=== PATIENT | female | born 1960 | race Hispanic/Latino ===

== ENCOUNTER 2018-09-17 06:46 | Observation (INO) | payer MEDICARE ==
[2018-09-14 13:27] LABS: BLOOD UREA NITROGEN 9 mg/dL (7-26); BUN/CREATININE RATIO 13 (6-25); CALCIUM 9.1 mg/dL (8.4-10.2); CARBON DIOXIDE 26 mmol/L (22-29); CHLORIDE 106 mmol/L (98-107); EST GLOMERULAR FILTRATION RATE > 60 ML/MIN (60-); GLUCOSE 166 mg/dL (74-118); SODIUM 139 mmol/L (136-145)
[~2018-09-17] VITALS: Ht 162.6 cm; Wt 82.8 kg
[~2018-09-17 06:46] MED LIST: ATORVASTATIN CA20 MG PO; GABAPENTIN300 MG PO; METFORMIN HCL500 MG PO; OMEPRAZOLE40 MG PO; ROPIVACAINE 246.25 MG, EPINEPHRINE HCL 1:1000 1ML 0.5 MG, CLONIDINE HCL 0.08 MG, KETORO... INJ ONE
--- OUTSIDE RECORDS SUMMARY | 2018-09-17 07:05 | XMS REPORT | Clinical Summary ---
Author Author [facility] Address Unknown Phone Unavailable Care Team Providers Care State Patrol Officer Name Role Phone Jef Martínez MD PCP Allergies Not on File Medications Not on file Active Problems Not on file Social History Date Tobacco Use Types Packs/Day Years Used Never Assessed Sex Assigned at Date Recorded Not on file Industry Job Start Date Occupation Not on file Not on file Not on file Travel End Travel History Travel Start No recent travel history available. Last Filed Vital Signs Not on file Plan of Treatment Not on file Results Not on fileafter 09/16/2017 Insurance Type Payer Benefit Subscriber ID Effective Phone Address Plan / Dates Group HMO CIGNA HEALTHSPRING CIGNA xxxxxxxxx 2016-P [facility]I [facility] Advance Directives Patient has advance care planning documents on file. For more information, ana lilia membreno contact: Rafael Waggoner [address] [place] [address]
--- OUTSIDE RECORDS SUMMARY | 2018-09-17 07:05 | XMS REPORT ---
Author Author [facility] Address Unknown Phone Unavailable Care Team Providers Care Package Reinspector Name Role Phone Unavailable Unavailable Payers Payer Name Policy Type Policy Number Effective Date Expiration Date Problems This patient has no known problems. Allergies, Adverse Reactions, Alerts This patient has no known allergies or adverse reactions. Medications This patient has no known medications. Results Test Description Test Time Test Comments Text Results Atomic Results Result Comments - XR CHEST 2 V 2018-07-24 11:27:00 FAX: Jef Landis MD [phone] [place]: O St: REG Name: RADHADERECKDAMASO CAMPBELL [facility] : 1960 Age/S: 58/F [address] [facility] Unit #: [id number] Loc: [place] [address] Phys: Jef Martínez MD Acct: [id number] Dis Date: Status: REG CLI PHONE #: [phone] Exam Date: 07/24/2018 1100 FAX #: [phone] Reason: COUGH EXAMS: CPT CODE: [id number] XR CHEST 2 V 14484 HISTORY: Cough. COMPARISON: None available. AP and lateral view of the chest: No acute infiltrates, effusion or congestion. Cardiac and the mediastinal silhouette are normal. IMPRESSION: No acute infiltrates, effusion or congestion. at 1127 Reported and signed by: Hua Urbano M.D. CC: Jef Martínez MD Technologist: RT Jaclyn(Shahriar) Trnscrd Date/Time/By: 07/24/2018 (1124) : By: [email or web address] Orig Print D/T: S: 07/24/2018 (5731) PAGE 1 Signed Report
[2018-09-17] MEDS ORDERED: DEXAMETHASONE SOD PHOS 10 MG/1 ML VIAL ONE (07:17)
[2018-09-17] MEDS ORDERED: CELECOXIB 200 MG CAP ONE (07:17)
[2018-09-17] MEDS ORDERED: GABAPENTIN 300 MG CAP ONE (07:17)
[2018-09-17] MEDS ORDERED: CEFAZOLIN SOD 2 GM/D5W 50ML 50 ML IV ONE (07:18)
[2018-09-17] MEDS ORDERED: TRANEXAMIC ACID 1,000 MG/10 ML ML ONE (07:26)
[2018-09-17] MEDS ORDERED: BACITRACIN 50,000 UNIT VIAL ONE (07:26)
[2018-09-17] MEDS ORDERED: VANCOMYCIN HCL 1,000 MG ONE (07:26)
[2018-09-17] MEDS ORDERED: SODIUM CHLORIDE 0.9% 500ML 500 ML ONE (07:27)
[2018-09-17] MEDS ORDERED: KETOROLAC TROMETHAMINE 30 MG/ML VIAL IV PRN ×2 (09:45→11:00)
[2018-09-17] MEDS ORDERED: DIPHENHYDRAMINE HCL INJ 50 MG/ML VIAL IM/IV PRN (09:45)
[2018-09-17] MEDS ORDERED: PROMETHAZINE HCL (IM) 25 MG/ML VIAL INJ PRN (09:45)
[2018-09-17] MEDS ORDERED: ZOLPIDEM TARTRATE 5 MG TAB PO PRN (09:45)
[2018-09-17] MEDS ORDERED: ONDANSETRON HCL INJ 2MG/ML 2ML 2 MG/ML VIAL IV PRN (09:45)
[2018-09-17] MEDS ORDERED: HYDROCODONE/APAP 5MG-325MG TAB PO PRN (09:45)
[2018-09-17] MEDS ORDERED: ACETAMINOPHEN 650 MG SUPP PR PRN (09:45)
[2018-09-17] MEDS ORDERED: DOCUSATE SODIUM 100 MG CAP PO PRN (09:45)
--- OUTSIDE RECORDS SUMMARY | 2018-09-17 10:06 | XMS REPORT | Clinical Summary ---
Author Author [facility] Address Unknown Phone Unavailable Care Team Providers Care Stitch Rubber Name Role Phone Jef Martínez MD PCP [...] CIGNA HEALTHSPRING CIGNA xxxxxxxxx 2016-P [facility]I resent [facility] AD[facility] Advance Directives Patient has advance care planning documents on file. For more information, ana lilia membreno contact: Rafael Waggoner [address] [place] [address]
[2018-09-17] MEDS ORDERED: HYDROMORPHONE 2MG/ML 2 MG/ML ML ONE (10:21)
--- NOTE | 2018-09-17 10:27 | Diagnostic Imaging Report ---
Left knee radiographs-2 views History: Postoperative. Findings: Status post left total total knee arthroplasty and patellar resurfacing with prosthetic components in anatomic alignment. Overlying subcutaneous emphysema and surgical skin lola are present. No evidence of acute fracture. IMPRESSION: Status post left total knee arthroplasty in anatomic position. Signed by: Dr. Daxa Manning MD on 09/17/2018 10:23 AM
--- NOTE | 2018-09-17 11:00 | NUR ---
RECEIVED PATIENT FROM RECOVERY. PATIENT A/O X3, EVEN RESPIRATIONS ON RA. BOWEL SOUNDS ACTIVE. LEFT KNEE DRESSING CLEAN, DRY, AND INTACT. RIGHT FA IV WITH IVF @ 100 CC/HR. FOOT PUMPS IN PLACE BILATERALLY. VITAL SIGNS STABLE. ORIENTED PATIENT TO CALL LIGHT. BED LOW, WHEELS LOCKED, SIDE RAILS X2. WILL CONTINUE TO MONITOR PATIENT.
[2018-09-17 11:13] VITALS: BP 125/75
[2018-09-17 11:15] VITALS: BP 125/75
[2018-09-17] MEDS: ACETAMINOPHEN 1000 MG/100 ML IV SCH ×2 (11:47→17:18)
[2018-09-17 12:20] VITALS: BP 125/75
[2018-09-17] MEDS: CEFAZOLIN SOD 1 GM/NS 50ML 50 ML IV SCH ×2 (14:15→22:25)
--- NOTE | 2018-09-17 15:37 | NUR ---
PATIENT HOPPED 15 FT WITH PT. PATIENT BACK IN BED, CALL LIGHT IN REACH, WILL CONTINUE TO MONITOR.
[2018-09-17] MEDS ORDERED: DEXTROSE 50% SYRINGE 50 ML IV PRN (16:15)
--- NOTE | 2018-09-17 16:15 | NUR ---
NOTIFIED DR. SPAULDING OF 249 BLOOD SUGAR. NEW ORDER FOR LOW DOSE SS HUMALOG. ORDERS IMPLEMENTED.
[2018-09-17 16:34] VITALS: BP 97/69
[2018-09-17] MEDS: CELECOXIB 200 MG CAP PO SCH (16:34)
[2018-09-17] MEDS: ASPIRIN 325 MG TAB PO SCH (16:34)
[2018-09-17] MEDS: INSULIN LISPRO 100 UNIT/1 ML 3ML VIAL SQ SCH ×2 (16:44→21:00)
--- NOTE | 2018-09-17 17:36 | Operative Report ---
DATE OF PROCEDURE: 09/17/2018 SURGEON: Aguilar Aragon MD PROTOTYPE CARPENTER: Blaine Mustafa PA-C. PREOPERATIVE DIAGNOSIS: Osteoarthritis, left knee. POSTOPERATIVE DIAGNOSIS: Osteoarthritis, left knee. PROCEDURE: Left total knee replacement. INDICATIONS: The patient is a 58-year-old lady, who has advanced osteoarthritis of her left knee. She has failed conservative management and would like to proceed with a left total knee replacement. The risks and benefits of the procedure have been explained. She states she understands and wishes to proceed. PROCEDURE IN DETAIL: The patient was brought to the operating room and placed under general anesthetic. She received prophylactic antibiotics, a regional block and tranexamic acid in the holding area. Her left lower extremity was prepped and draped in a sterile manner. A preoperative time-out was performed. The extremity was exsanguinated and a proximal tourniquet was inflated to 300 mmHg. An anterior incision with a medial parapatellar arthrotomy was performed. Generalized tissue laxity was noted. Limited soft tissue releases were performed. The knee was brought up into flexion. The anterior cruciate ligament was removed. A [employer] Persona knee system was used. Meniscal remnants and marginal osteophytes were removed. An extramedullary cutting guide was used to resect the proximal tibia. The cut was referenced off the medial compartment. The tibial base plate was noted to be a size D. The central fin punch was impacted and attention was directed towards the distal femur. An intramedullary cutting guide was used to resect the distal femur in 5 degrees of valgus. External rotation was referenced off the epicondylar axis, Whitesides line, and the posterior condyles. The femoral component was a size #7. The anterior and posterior cuts were made. A trial reduction was performed. A 10 mm medial congruent tibial insert provided appropriate soft tissue balancing in full extension and 90 degrees of flexion. The patella was resurfaced with a 29 mm patellar button. The thickness was checked before and after was right around 16 mm. Patellar tracking was noted to be concentric. The trial implants were then all removed. A 100 mL premixed pericapsular LUDY injection was placed. The knee was thoroughly irrigated with a shower tip pulsatile lavage. All of the cuts had been irrigated with a spray mixture of polymyxin and vancomycin. The components were cemented into place using a single mix of Palacos cement preloaded with antibiotics. Care was taken to remove extravasated cement. The wound was further irrigated while the cement cured. 500 mg of vancomycin spray was then sprinkled into the knee joint. The arthrotomy was carefully closed with interrupted #1 Ethibond. The skin was closed with subcuticular Vicryl and lola. A sterile Aquacel bandage was applied. The patient was extubated and transported to the recovery room in stable condition. Blood loss was minimal. All needle and sponge counts were correct. Aguilar Aragon MD DR/LUCAS /[id number]
[2018-09-17] MEDS ORDERED: ROPIVACAINE 0.5% 5 MG/ML 30 ML SDV ONE (18:42)
[2018-09-17] MEDS ORDERED: LIDOCAINE 2% /EPINEPHRINE 20 ML SDV INJ ONE (18:42)
[2018-09-17] MEDS ORDERED: MIDAZOLAM HCL 2 MG/2 ML VIAL ONE (18:58)
[2018-09-17] MEDS ORDERED: LIDOCAINE HCL 2% LOCAL INJ 5 ML SDV VIAL INJ ONE (18:58)
[2018-09-17] MEDS ORDERED: PROPOFOL IV EMULSION 10 MG/ML 20 ML VIAL ONE (18:58)
[2018-09-17] MEDS ORDERED: FENTANYL CITRATE/PF 100MCG/2 ML INJ ONE (18:58)
[2018-09-17] MEDS ORDERED: DEXAMETHASONE SOD PHOS INJ 4 MG/ML VIAL ONE (18:58)
[2018-09-17] MEDS ORDERED: ACETAMINOPHEN 1000 MG/100 ML IV ONE (18:58)
[2018-09-17] MEDS ORDERED: ONDANSETRON HCL INJ 2MG/ML 2ML 2 MG/ML VIAL ONE (18:58)
[2018-09-17] MEDS ORDERED: SEVOFLURANE INHAL SOLN 250 ML PEN BTL ONE (18:58)
[2018-09-17] MEDS ORDERED: EPHEDRINE SULFATE INJ 50 MG/10 ML SYR ONE (18:58)
[2018-09-17 20:00] VITALS: BP 109/56
[2018-09-17] MEDS: HYDROCODONE/APAP 7.5MG-325MG 1 EA TAB PO PRN (20:28)
--- NOTE | 2018-09-17 20:29 | NUR ---
ISAIAH WRAP DRESSING DRY AND INTACT TO THE LEFT LEG, HER TOES IS WARM TO TOUCH AND SHE'S ABLE TO MOVE THE LEG. PATIENT C/O PAIN TO THE LEFT LEG WITH PAIN SCORE #8, MEDICATED WITH NORCO 1TAB ORDERED. CALL LIGHT WITHIN EASY REACH, WILL APPLY HER CPM ONCE THE PAIN IS UNDER CONTROL.
[2018-09-17 20:30] VITALS: BP 109/56
[2018-09-17] MEDS ORDERED: ATORVASTATIN 40 MG TAB PO SCH (21:00)
[2018-09-17] MEDS ORDERED: ATORVASTATIN 20 MG TAB PO SCH (21:00)
--- NOTE | 2018-09-17 21:15 | NUR ---
CPM APPLIED, PATIENT TOLERATING IT AT 50DEGREES. CALL LIGHT WITHIN EASY REACH, ISAIAH WRAP DRESSING DRY AND INTACT TO THE LEFT LEG.
[2018-09-17] MEDS ORDERED: SODIUM CHLORIDE 0.9% 50ML 50 ML ONE (22:22)
[2018-09-18] VITALS: BP 118/80
[2018-09-18] MEDS: ACETAMINOPHEN 1000 MG/100 ML IV SCH ×2 (00:11→06:55)
--- NOTE | 2018-09-18 00:13 | NUR ---
PATIENT C/O HEADACHE, MEDICATED WITH SCHEDULE TYLENOL. ASSISTED WITH ADL, CALL LIGHT WITHIN EASY REACH AND SHE'S INSTRUCTED TO CALL FOR ASSISTANCE NEEDED.
--- NOTE | 2018-09-18 02:06 | NUR ---
ROUNDS MADE, PATIENT OBSERVED SOUNDLY ASLEEP WITHOUT RESPIRATORY DISTRESS. CALL LIGHT WITHIN EASY REACH AND ISAIAH WRAP DRESSING DRY AND INTACT TO THE LEFT LEG WITHOUT BLEED.
[2018-09-18 04:00] VITALS: BP 113/71
[2018-09-18] MEDS: HYDROCODONE/APAP 7.5MG-325MG 1 EA TAB PO PRN ×2 (05:15→15:50)
[2018-09-18 05:41] LABS: HEMATOCRIT 35.1 % (34.2-44.1); HEMOGLOBIN 12.1 g/dL (12.0-16.0)
--- NOTE | 2018-09-18 06:20 | NUR ---
ISAIAH WRAP DRESSING REMOVED FROM THE LEFT LEG, DEEP HOSE APPLIED TO THE LEG. CPM TREATMENT IS NOW IN PROGRESS, SHE'S TOLERATING IT AT 60DEGREES.
[2018-09-18] MEDS: CEFAZOLIN SOD 1 GM/NS 50ML 50 ML IV SCH (06:22)
--- NOTE | 2018-09-18 07:18 | NUR ---
RECEIVED PATIENT AWAKE RESTING IN BED NO SIGNS OF DISTRESS. BED LOW, WHEELS LOCKED, SIDE RAILS X2. CALL LIGHT IN REACH WILL CONTINUE TO MONITOR PATIENT.
[2018-09-18] MEDS ORDERED: PANTOPRAZOLE SOD 40 MG TABEC PO SCH (07:30)
[2018-09-18 07:53] VITALS: BP 119/73
--- NOTE | 2018-09-18 08:16 | NUR ---
REMOVED PATIENTS CARDENAS. CATHETER TIP INTACT ON REMOVAL. PATIENT IS DUE TO VOID.
[2018-09-18] MEDS: CELECOXIB 200 MG CAP PO SCH ×2 (08:19→16:39)
[2018-09-18] MEDS: ASPIRIN 325 MG TAB PO SCH ×2 (08:19→16:39)
[2018-09-18] MEDS: INSULIN LISPRO 100 UNIT/1 ML 3ML VIAL SQ SCH ×3 (08:58→16:41)
[2018-09-18] MEDS ORDERED: OMEPRAZOLE 20 MG CAP PO SCH (09:00)
[2018-09-18] MEDS ORDERED: GABAPENTIN 300 MG CAP PO SCH (09:00)
[2018-09-18] MEDS ORDERED: METFORMIN HCL 500 MG TAB PO SCH (09:00)
--- NOTE | 2018-09-18 09:00 | NUR ---
PATIENT A/O X3, EVEN RESPIRATIONS ON RA. LUNG SOUNDS CLEAR TO AUSCULTATION. BOWEL SOUNDS ACTIVE, SKIN INTACT, NO EDEMA. LEFT KNEE DRESSING INTACT, MINIMAL DRAINAGE. RIGHT FA IV INTACT/PATENT. PATIENT DUE TO VOID AT THIS TIME. CALL LIGHT IN REACH WILL CONTINUE TO MONITOR PATIENT.
[2018-09-18 09:28] VITALS: BP 119/73
[2018-09-18] MEDS ORDERED: ACETAMINOPHEN 1000 MG/100 ML IV PRN (09:45)
--- NOTE | 2018-09-18 10:15 | NUR ---
PATIENT HAS VOIDED SINCE CARDENAS REMOVAL.
[2018-09-18] MEDS ORDERED: ONDANSETRON HCL 4 MG ORAL DISINTEGRATING TAB PO PRN (10:30)
--- NOTE | 2018-09-18 11:30 | NUR ---
ASMITA called and spoke with Ashlee at [facility]. She stated that they are good to take pt. Will put her on the schedule for tomorrow. Called and spoke to Dilcia at [employer] [facility]. They will deliver CPM and 3-in-1 commode after pt discharges. CM will provide rolling walker. [facility] Both companies' contact information was printed and given to pt.
--- NOTE | 2018-09-18 11:40 | Consultation ---
DATE OF CONSULTATION: REASON FOR CONSULTATION: Postop medical management. HISTORY OF PRESENT ILLNESS: The patient is a 58-year-old lady status post left total knee arthroplasty for end-stage osteoarthritis. She is doing well postoperatively and I was consulted for postop medical management. She denies any fevers, chills, nausea, vomiting, headache, shortness of breath, chest pain, or dizziness on review of systems. PAST MEDICAL HISTORY: Significant for diabetes, hyperlipidemia, reflux disease. MEDICATIONS: See MAR. ALLERGIES: NONE. SOCIAL HISTORY: , 4 kids. Nonsmoker, nondrinker. FAMILY HISTORY: Diabetes and coronary artery disease. PHYSICAL EXAMINATION: VITAL SIGNS: Temperature is 96.8, pulse 70, blood pressure 118/80, sats 94% on room air. GENERAL: She is in no apparent distress, lying in bed. NECK: Supple. CARDIOVASCULAR: Regular rate and rhythm. LUNGS: Clear to auscultation bilaterally. ABDOMEN: Good bowel sounds. Soft, nontender. EXTREMITIES: No clubbing or cyanosis. Left knee is bandaged. NEUROLOGIC: Nonfocal. ASSESSMENT AND PLAN: 1. Left knee pain. Continue with postoperative care and physical therapy. 2. Anemia. Check a CBC. 3. Reflux disease. Continue with her medication. 4. Hyperlipidemia. Continue with her cholesterol medicine. 5. Diabetes. Continue with her medication and monitor her sugars. Please see hospital chart for full details. MD HALLEY Weller/LUCAS /[id number]
[2018-09-18 12:42] VITALS: BP 112/71
[2018-09-18] MEDS ORDERED: ASPIRIN325 MG PO (13:28)
[2018-09-18] MEDS ORDERED: NORCO 7.5-3251 EACH PO (15:19)
[2018-09-18] MEDS ORDERED: TYLENOL WITH C1 EACH PO (15:20)
--- NOTE | 2018-09-18 15:50 | NUR ---
REMOVED PATIENTS IV. CATHETER TIP INTACT AND PRESSURE DRESSING APPLIED.
[2018-09-18 16:30] VITALS: BP 120/70
--- NOTE | 2018-09-18 17:17 | NUR ---
PATIENT DISCHARGED FROM FACILITY. PATIENT GATHERED ALL PERSONAL BELONGINGS, DISCHARGE INSTRUCTIONS, AND FOLLOW UP INFORMATION. LEFT UNIT IN WHEELCHAIR AND WENT HOME VIA PRIVATE AUTO. NO SIGNS OF DISTRESS WHEN LEAVING FACILITY.
== END 2018-09-18 17:21 | disposition home health service (06) ==
LOC: OR 06:46 → PACU V 09:44 → MED/SURG 10:45
PROVIDERS: ADMIT Specialist; ATTEND Specialist
DX: M17.12 Unilateral primary osteoarthritis, left knee (principal); D64.9 Anemia, unspecified; K21.9 Gastro-esophageal reflux disease without esophagitis; E78.5 Hyperlipidemia, unspecified; E11.9 Type 2 diabetes mellitus without complications; Z01.812 Encounter for preprocedural laboratory examination; Z96.643 Presence of artificial hip joint, bilateral; Z82.61 Family history of arthritis; Z83.3 Family history of diabetes mellitus; Z82.49 Family history of ischemic heart disease and other diseases of the circulatory system; Z83.2 Family history of diseases of the blood and blood-forming organs and certain disorders involving the immune mechanism; Z79.82 Long term (current) use of aspirin; Z79.84 Long term (current) use of oral hypoglycemic drugs
CPT/HCPCS: 27447; 36415 ×3; 73560; 80048; 82948 ×2; 85014; 85018; 86850; 86900; 86920; 96365; 96367; 96372; 97110; 97116 ×2; 97162; 97530; C1713; C1776; G0378 ×2; J0131 ×2; J0171; J0690 ×3; J1100 ×2; J1170; J1885; J2001 ×2; J2250; J2405; J2704; J2795; J3370; J7040; S0164; 96374